=== PATIENT | female | born 1970 | race Two or more races ===

== ENCOUNTER 2024-05-27 06:27 | Outpatient (RCR) | payer BC, SELFPAY | END 2024-05-27 23:59 | disposition home or self-care (01) | LOC: RPT 06:27 | PROVIDERS: ATTENDING PHYSICIAN Nurse Practitioner; FAMILY PHYSICIAN Emergency Medicine | DX: R10.2 Pelvic and perineal pain (principal); M62.89 Other specified disorders of muscle; Z73.6 Limitation of activities due to disability | CPT/HCPCS: 97163; 97530 ==

== ENCOUNTER → 2024-06-02 10:40 | Outpatient (REF) | payer BC, SELFPAY | LOC: WDC 10:40 | PROVIDERS: ATTENDING PHYSICIAN Emergency Medicine | DX: N95.1 Menopausal and female climacteric states (principal); Z79.890 Hormone replacement therapy; Z12.31 Encounter for screening mammogram for malignant neoplasm of breast | CPT/HCPCS: 77063; 77067; 77080 ==

== ENCOUNTER 2024-06-09 15:05 | Outpatient (RCR) | payer BC, SELFPAY | END 2024-06-09 23:59 | disposition home or self-care (01) | LOC: RPT 15:05 | PROVIDERS: ATTENDING PHYSICIAN Nurse Practitioner; FAMILY PHYSICIAN Emergency Medicine | DX: R10.2 Pelvic and perineal pain (principal); M62.89 Other specified disorders of muscle; Z73.6 Limitation of activities due to disability | CPT/HCPCS: 97140; 97530 ==

== ENCOUNTER 2024-06-23 07:06 | Outpatient (RCR) | payer BC, SELFPAY | END 2024-06-23 23:59 | disposition home or self-care (01) | LOC: ROT 07:06 | PROVIDERS: ATTENDING PHYSICIAN Orthopaedic Surgery Hand Surgery; FAMILY PHYSICIAN Emergency Medicine | DX: Z47.89 Encounter for other orthopedic aftercare (principal); G56.01 Carpal tunnel syndrome, right upper limb; Z73.6 Limitation of activities due to disability; M62.81 Muscle weakness (generalized) | CPT/HCPCS: 97018; 97166; 97535 ==

== ENCOUNTER 2024-07-01 15:29 | Outpatient (RCR) | payer BC, SELFPAY | END 2024-07-01 23:59 | disposition home or self-care (01) | LOC: RPT 15:29 | PROVIDERS: ATTENDING PHYSICIAN Nurse Practitioner; FAMILY PHYSICIAN Emergency Medicine | DX: R10.2 Pelvic and perineal pain (principal); M62.89 Other specified disorders of muscle; Z73.6 Limitation of activities due to disability | CPT/HCPCS: 97530 ==

== ENCOUNTER 2024-07-31 11:19 | Outpatient (RCR) | payer BC, SELFPAY | END 2024-07-31 23:59 | disposition home or self-care (01) | LOC: RPT 11:19 | PROVIDERS: ATTENDING PHYSICIAN Nurse Practitioner; FAMILY PHYSICIAN Emergency Medicine | DX: R10.2 Pelvic and perineal pain (principal); M62.89 Other specified disorders of muscle; Z73.6 Limitation of activities due to disability | CPT/HCPCS: 97140; 97530 ==

== ENCOUNTER 2024-08-12 13:11 | Outpatient (RCR) | payer BC, SELFPAY | END 2024-08-12 23:59 | disposition home or self-care (01) | LOC: ROT 13:11 | PROVIDERS: ATTENDING PHYSICIAN Orthopaedic Surgery Hand Surgery; FAMILY PHYSICIAN Emergency Medicine | DX: Z47.89 Encounter for other orthopedic aftercare (principal); G56.01 Carpal tunnel syndrome, right upper limb; Z73.6 Limitation of activities due to disability; M62.81 Muscle weakness (generalized) | CPT/HCPCS: 97018; 97110; 97140; 97535 ==

== ENCOUNTER 2024-08-18 06:40 | Outpatient (RCR) | payer BC, SELFPAY | END 2024-08-18 23:59 | disposition home or self-care (01) | LOC: RPT 06:40 | PROVIDERS: ATTENDING PHYSICIAN Student in an Organized Health Care Education/Training Program; FAMILY PHYSICIAN Emergency Medicine | DX: M54.51 Vertebrogenic low back pain (principal); M47.816 Spondylosis without myelopathy or radiculopathy, lumbar region; M54.16 Radiculopathy, lumbar region; Z73.6 Limitation of activities due to disability; M25.551 Pain in right hip | CPT/HCPCS: 97110; 97112; 97162 ==

== ENCOUNTER 2024-09-02 09:57 | Outpatient (RCR) | payer BC, SELFPAY | END 2024-09-02 23:59 | disposition home or self-care (01) | LOC: ROT 09:57 | PROVIDERS: ATTENDING PHYSICIAN Orthopaedic Surgery Hand Surgery; FAMILY PHYSICIAN Emergency Medicine | DX: Z47.89 Encounter for other orthopedic aftercare (principal); G56.01 Carpal tunnel syndrome, right upper limb; Z73.6 Limitation of activities due to disability; M62.81 Muscle weakness (generalized) | CPT/HCPCS: 97018; 97110; 97140 ==

== ENCOUNTER 2024-09-17 17:06 | Outpatient (RCR) | payer BC, SELFPAY | END 2024-09-17 23:59 | disposition home or self-care (01) | LOC: RPT 17:06 | PROVIDERS: ATTENDING PHYSICIAN Student in an Organized Health Care Education/Training Program; FAMILY PHYSICIAN Emergency Medicine | DX: M54.51 Vertebrogenic low back pain (principal); M47.816 Spondylosis without myelopathy or radiculopathy, lumbar region; M54.16 Radiculopathy, lumbar region; Z73.6 Limitation of activities due to disability; M25.551 Pain in right hip | CPT/HCPCS: 97110; 97112 ==

== ENCOUNTER 2024-10-14 15:06 | Outpatient (RCR) | payer BC, SELFPAY | END 2024-10-14 23:59 | disposition home or self-care (01) | LOC: RPT 15:06 | PROVIDERS: ATTENDING PHYSICIAN Student in an Organized Health Care Education/Training Program; FAMILY PHYSICIAN Emergency Medicine | DX: M54.51 Vertebrogenic low back pain (principal); M47.816 Spondylosis without myelopathy or radiculopathy, lumbar region; M54.16 Radiculopathy, lumbar region; Z73.6 Limitation of activities due to disability; M25.551 Pain in right hip | CPT/HCPCS: 97110; 97112 ==

== ENCOUNTER 2024-11-27 14:13 | Outpatient (RCR) | payer BC, SELFPAY | END 2024-11-27 23:59 | disposition home or self-care (01) | LOC: RPT 14:13 | PROVIDERS: ATTENDING PHYSICIAN Student in an Organized Health Care Education/Training Program; FAMILY PHYSICIAN Emergency Medicine | DX: M54.51 Vertebrogenic low back pain (principal); M47.816 Spondylosis without myelopathy or radiculopathy, lumbar region; M54.16 Radiculopathy, lumbar region; Z73.6 Limitation of activities due to disability; M25.551 Pain in right hip | CPT/HCPCS: 97110; 97112 ==

== ENCOUNTER 2024-12-31 13:32 | Outpatient (RCR) | payer BC, SELFPAY | END 2024-12-31 23:59 | disposition home or self-care (01) | LOC: RPT 13:32 | PROVIDERS: ATTENDING PHYSICIAN Nurse Practitioner; FAMILY PHYSICIAN Emergency Medicine | DX: R10.2 Pelvic and perineal pain (principal); M54.51 Vertebrogenic low back pain (principal); M47.816 Spondylosis without myelopathy or radiculopathy, lumbar region; M62.89 Other specified disorders of muscle; M54.16 Radiculopathy, lumbar region; N94.10 Unspecified dyspareunia; Z73.6 Limitation of activities due to disability; M25.551 Pain in right hip | CPT/HCPCS: 97112; 97140; 97530 ==

== ENCOUNTER 2025-01-20 14:33 | Outpatient (RCR) | payer BC, SELFPAY | END 2025-01-20 23:59 | disposition home or self-care (01) | LOC: RPT 14:33 | PROVIDERS: ATTENDING PHYSICIAN Specialist; FAMILY PHYSICIAN Emergency Medicine | DX: M25.561 Pain in right knee (principal); M25.562 Pain in left knee; Z73.6 Limitation of activities due to disability; M17.0 Bilateral primary osteoarthritis of knee; R26.89 Other abnormalities of gait and mobility | CPT/HCPCS: 97110; 97112; 97162 ==

== ENCOUNTER 2025-02-13 09:32 | Outpatient (RCR) | payer BC, SELFPAY | END 2025-02-13 23:59 | disposition home or self-care (01) | LOC: RPT 09:32 | PROVIDERS: ATTENDING PHYSICIAN Specialist; FAMILY PHYSICIAN Emergency Medicine | DX: M25.561 Pain in right knee (principal); M25.562 Pain in left knee; Z73.6 Limitation of activities due to disability; M17.0 Bilateral primary osteoarthritis of knee; R26.89 Other abnormalities of gait and mobility | CPT/HCPCS: 97110; 97112 ==

== ENCOUNTER 2025-03-11 09:14 | Outpatient (RCR) | payer BC, SELFPAY | END 2025-03-11 23:59 | disposition home or self-care (01) | LOC: RPT 09:14 | PROVIDERS: ATTENDING PHYSICIAN Nurse Practitioner; FAMILY PHYSICIAN Emergency Medicine | DX: R10.2 Pelvic and perineal pain (principal); M17.0 Bilateral primary osteoarthritis of knee (principal); M25.561 Pain in right knee; M62.89 Other specified disorders of muscle; N94.10 Unspecified dyspareunia; M25.562 Pain in left knee; Z73.6 Limitation of activities due to disability; M54.51 Vertebrogenic low back pain; R26.89 Other abnormalities of gait and mobility; M25.571 Pain in right ankle and joints of right foot; M47.816 Spondylosis without myelopathy or radiculopathy, lumbar region; M54.16 Radiculopathy, lumbar region; M25.551 Pain in right hip | CPT/HCPCS: 97140; 97530 ==

== ENCOUNTER 2025-03-20 10:12 | Outpatient (RCR) | payer BC, SELFPAY | END 2025-03-20 23:59 | disposition home or self-care (01) | LOC: RPT 10:12 | PROVIDERS: ATTENDING PHYSICIAN Specialist; FAMILY PHYSICIAN Emergency Medicine | DX: M25.561 Pain in right knee (principal); M25.562 Pain in left knee; Z73.6 Limitation of activities due to disability; M17.0 Bilateral primary osteoarthritis of knee; R26.89 Other abnormalities of gait and mobility | CPT/HCPCS: 97110; 97140 ==

== ENCOUNTER 2025-04-08 08:22 | Outpatient (RCR) | payer BC, SELFPAY | END 2025-04-21 23:59 | disposition home or self-care (01) | LOC: RPT 08:22 | PROVIDERS: ATTENDING PHYSICIAN Specialist; FAMILY PHYSICIAN Emergency Medicine | DX: M25.561 Pain in right knee (principal); M25.562 Pain in left knee; Z73.6 Limitation of activities due to disability; M17.0 Bilateral primary osteoarthritis of knee; R26.89 Other abnormalities of gait and mobility | CPT/HCPCS: 97110; 97112; 97140 ==

== ENCOUNTER 2025-04-15 08:30 | Outpatient (RCR) | payer BC, SELFPAY | END 2025-04-15 23:59 | disposition home or self-care (01) | LOC: RPT 08:30 | PROVIDERS: ATTENDING PHYSICIAN Nurse Practitioner; FAMILY PHYSICIAN Emergency Medicine | DX: M17.0 Bilateral primary osteoarthritis of knee (principal); M25.561 Pain in right knee; M25.562 Pain in left knee; Z73.6 Limitation of activities due to disability; R26.89 Other abnormalities of gait and mobility; M25.571 Pain in right ankle and joints of right foot; R10.2 Pelvic and perineal pain; M54.51 Vertebrogenic low back pain; M47.816 Spondylosis without myelopathy or radiculopathy, lumbar region; M54.16 Radiculopathy, lumbar region; M25.551 Pain in right hip; R10.20 Pelvic and perineal pain unspecified side; M62.89 Other specified disorders of muscle; N94.10 Unspecified dyspareunia | CPT/HCPCS: 97140; 97530 ==